=== PATIENT | female | born 1985 | race Caucasian/White ===

== ENCOUNTER 2022-11-20 15:42 | Outpatient (CLI) | payer BC, SELFPAY ==
--- NOTE | ~2022-11-20 | MR_ITS ---
MRI of the lumbar spine Clinical History: Back pain Technique: Axial T2-weighted images, and sagittal T1-weighted, T2-weighted, and and T2 fat-sat images were acquired. Findings: There is no fracture or subluxation of the lumbar spine. Vertebral bodies maintain normal h eight and alignment. No bone marrow signal reality seen. At L1-L2, L2-L3, L3-L4, the intervertebral discs maintain normal signal and position. No disc bulge o r herniation T levels. No spinal canal stenosis or neural foraminal narrowing at these levels. At L4-L5, there is disc desiccation with diffuse disc bulge. There is mild facet joint hypertrophy. N o spinal canal stenosis. Probable minimal right neural foraminal narrowing. Left neural foramen prese rved. At L5-S1, there is central to left paracentral disc protrusion, with tiny annular fissure. There may be focal impingement of descending left-sided S1-S2 level nerve root. Neural foramina are preserved. No emanuel central canal stenosis. Paravertebral soft tissues are unremarkable. Impression: Central to left paracentral disc protrusion L5-S1, which may minimally impinge the descending left-si ded S1-S2 level nerve root. Additional mild degenerative change at L4-L5 and L5-S1, as detailed above. Reviewed, dictated and finalized at location . Impression: Central to left paracentral disc protrusion L5-S1, which may minimally impinge the descending left-sided S1-S2 level nerve root. Additional mild degenerative change at L4-L5 and L5-S1, as detailed above.
== END 2022-11-20 15:43 ==
PROVIDERS: Visit Provider Nurse Practitioner Family
DX: M51.27 Other intervertebral disc displacement, lumbosacral region (principal)
CPT/HCPCS: 72148

== ENCOUNTER → 2023-06-20 08:54 | Outpatient (CLI) | payer BC, SELFPAY ==
--- NOTE | ~2023-06-20 | US_ITS ---
EXAMINATION:US venous doppler LE LT INDICATION:Calf pain. TECHNIQUE: Multiple grayscale, color flow and Doppler images of the left lower extremity deep venous systems were obtained and reviewed. COMPARISON:No prior studies for comparison. FINDINGS: The common femoral, superficial femoral and popliteal veins demonstrate normal respiratory variation, augmentation and compressibility. Color flow is also seen within the posterior tibial, pe roneal, greater saphenous and profunda veins. IMPRESSION: 1: No lower extremity deep venous thrombosis. Reviewed, dictated and finalized at location A. ERY INSPECTOR
== END ==
PROVIDERS: Visit Provider Nurse Practitioner Family
DX: M79.662 Pain in left lower leg (principal)
CPT/HCPCS: 93971

== ENCOUNTER 2024-05-11 10:33 | Outpatient (CLI) | payer BC, SELFPAY ==
--- NOTE | ~2024-05-11 | MR_ITS ---
EXAMINATION: MR lumbar spine wo con DATE: 05/11/2024 11:05 INDICATION: Low back pain with sciatica TECHNIQUE: Magnetic resonance imaging (MRI) of the lumbar spine was performed without intravenous con trast. Sequences included sagittal T2-weighted FSE, sagittal T2-weighted FS FSE, sagittal T1-weighted FSE, and axial T2-weighted FSE. COMPARISON: None FINDINGS: Negligible lumbar levocurvature. 2 mm retrolisthesis L5 on S1. Vertebral body heights are normal. Chanda ular fissures with moderate disc height loss at L4-L5 and mild to moderate disc height loss at L5-S1. There are mild T1 hyperintense fibrofatty degenerative endplate changes at both levels. Small T1 and T2 hyperintense hemangioma at L1 and L4. Marrow signal is otherwise normal. Remaining discs are norm al. The conus medullaris terminates at L1-L2. There is normal signal in the caudal spinal cord. Parav ertebral soft tissues are unremarkable. The following disc levels are specifically discussed: T12-L1: The disc does not extend beyond the endplate margin. There is mild bilateral facet joint oste oarthritis. There is no neural foraminal stenosis. There is no central canal stenosis. L1-L2: The disc does not extend beyond the endplate margin. There is mild bilateral facet joint osteo arthritis. There is no neural foraminal stenosis. There is no central canal stenosis. L2-L3: The disc does not extend beyond the endplate margin. There is mild left and moderate right fac et joint osteoarthritis. There is no neural foraminal stenosis. There is no central canal stenosis. L3-L4: The disc does not extend beyond the endplate margin. There is mild left and minimal right face t joint osteoarthritis. There is no neural foraminal stenosis. There is no central canal stenosis. L4-L5: Disc is bulging with superimposed annular fissure and moderate size central disc extrusion whi ch extends 2.0 cm caudal to the level of the superior endplate of L5 and which measures up to 10 x 6 mm in maximal transaxial dimensions. There is mild bilateral facet joint osteoarthritis. There is mil d left and mild to moderate right neural foraminal stenosis. There is mild central canal stenosis. L5-S1: Disc is bulging with superimposed annular fissure and moderate sized disc extrusion originatin g centrally and extending inferiorly and to the left narrowing the left lateral recess and exerting m ass effect upon the traversing left S1 nerve root. There is mild to moderate bilateral facet joint os teoarthritis. There is mild to moderate bilateral neural foraminal stenosis. There is mild central ca nal stenosis. IMPRESSION: 1. Moderate lower lumbar spondylosis most notable for annular fissures and disc extrusions at L4-L5 a nd L5-S1, the latter compressing the traversing left S1 nerve root at the lateral recess. Correlate c linically for muscle weakness of plantar flexion, sensory change of the lateral foot and small toe, a nd depressed ankle reflex. Reviewed, dictated and finalized at location B. NT TECH[employer]ICAL SUPPORT ASSOCIATE IMPRESSION: 1. Moderate lower lumbar spondylosis most notable for annular fissures and disc extrusions at L4-L5 and L5-S1, the latter compressing the traversing left S1 n erve root at the lateral recess. Correlate clinically for muscle weakness of pl judi flexion, sensory change of the lateral foot and small toe, and depressed ankle reflex.
== END 2024-05-11 10:34 | disposition home or self-care (01) ==
LOC: GOSHIMG 10:34
DX: M43.06 Spondylolysis, lumbar region (principal); M51.26 Other intervertebral disc displacement, lumbar region; M51.27 Other intervertebral disc displacement, lumbosacral region
CPT/HCPCS: 72148

== ENCOUNTER 2024-05-29 09:02 | Outpatient (CLI) | payer BC, SELFPAY ==
--- NOTE | ~2024-05-29 | XR_ITS ---
EXAMINATION: XR lumbar spine min 4V DATE: 05/29/2024 09:22 INDICATION: Back pain with sciatica. TECHNIQUE: 5 views of lumbar spine including standing views and flexion and extension views were obta ined. COMPARISON: Lumbar spine CT 05/29/2024 FINDINGS: There is 3 degrees levocurvature of lumbar spine. The spine is hypomobile with flexion and extension. Vertebral body heights are normal. There is moderately decreased disc height at L4-L5 and mildly decreased disc height at L5-S1. There is multilevel moderate facet joint osteoarthritis. IMPRESSION: 1. Moderate lumbar spondylosis. Reviewed, dictated and finalized at location A. [employer]IC[employer]
--- NOTE | ~2024-05-29 | CT_ITS ---
EXAMINATION: CT lumbar spine wo con DATE: 05/29/2024 09:28 INDICATION: Back pain. Sciatica. TECHNIQUE: Computed tomography (CT) of the lumbar spine was performed without intravenous contrast. A utomated exposure control and iterative reconstruction technique were employed. The dose-length produ ct was 933.15 mGy-cm. COMPARISON: Lumbar spine radiographs 05/29/2024, MRI 05/11/2024 FINDINGS: There is 8 degrees levocurvature of lumbar spine. Vertebral body heights are normal. There is moderately decreased disc height at L4-L5 and mildly decreased disc height at L5-S1. The following disc levels are specifically discussed: L1-L2: The disc does not extend beyond the endplate margin. There is mild bilateral facet joint osteo arthritis. There is no neural foraminal stenosis. There is no central canal stenosis. L2-L3: The disc does not extend beyond the endplate margins. There is moderate right and mild left fa cet joint osteoarthritis. There is no neural foraminal stenosis. There is no central canal stenosis. L3-L4: The disc does not extend beyond the endplate margin. There is mild bilateral facet joint osteo arthritis. There is no neural foraminal stenosis. There is no central canal stenosis. L4-L5: The disc is bulging with superimposed central extrusion. There is mild bilateral facet joint o steoarthritis. There is mild bilateral neural foraminal stenosis. There is mild central canal stenosi s. L5-S1: The disc is bulging with superimposed left subarticular zone extrusion. There is mild bilatera l facet joint osteoarthritis. There is mild bilateral neural foraminal stenosis. There is mild centra l canal stenosis. There is severe stenosis of left lateral recess. IMPRESSION: 1. Moderate lumbar spondylosis. Of note, an extrusion at L5-S1 causes severe stenosis of left lateral recess. Reviewed, dictated and finalized at location A. [employer] IMPRESSION: 1. Moderate lumbar spondylosis. Of note, an extrusion at L5-S1 causes severe st enosis of left lateral recess.
== END 2024-05-29 09:03 | disposition home or self-care (01) ==
DX: M54.30 Sciatica, unspecified side (principal); M47.896 Other spondylosis, lumbar region; M51.27 Other intervertebral disc displacement, lumbosacral region
CPT/HCPCS: 72110; 72131